=== PATIENT | female | born 1950 | race Caucasian/White ===

== ENCOUNTER → 2017-10-01 | Outpatient (CLI) | payer OTHER, MEDICARE | LOC: FIMAGING 17:20 | PROVIDERS: ATTEND Family Medicine | DX: K43.9 Ventral hernia without obstruction or gangrene (principal) ==

== ENCOUNTER → 2018-07-15 | Outpatient (CLI) | payer OTHER | LOC: FIMAGING 13:56 | PROVIDERS: ATTEND Family Medicine | DX: Z12.31 Encounter for screening mammogram for malignant neoplasm of breast (principal); Z80.3 Family history of malignant neoplasm of breast ==

== ENCOUNTER → 2018-09-06 | Outpatient (CLI) | payer OTHER | LOC: FIMAGING 15:54 | PROVIDERS: ATTEND Family Medicine | DX: M41.82 Other forms of scoliosis, cervical region (principal); M50.322 Other cervical disc degeneration at C5-C6 level ==

== ENCOUNTER → 2019-02-15 | Outpatient (CLI) | payer OTHER | LOC: FIMAGING 14:26 | PROVIDERS: ATTEND Physical Medicine & Rehabilitation | DX: M48.03 Spinal stenosis, cervicothoracic region (principal) ==

== ENCOUNTER → 2019-03-09 | Outpatient (CLI) | payer OTHER | LOC: FIMAGING 06:47 ==